=== PATIENT | female | born 1935 | race Caucasian/White ===

== ENCOUNTER 2023-08-17 16:47 | Inpatient (IN) | payer OTHER, SELFPAY ==
[2023-08-17] VITALS (9 sets, daily range): BP systolic 123–181; BP diastolic 42–86; BMI 34.2
--- NOTE | 2023-08-17 13:21 | ED.GENMED ---
History of Present Illness
<CHAYO Braswell - Last Filed: 08/17/23 14:32>
General
Chief Complaint: Abdominal Symptoms
Source: patient
Exam Limitations: none
Time Seen by Provider: 08/17/23 13:06
Nursing documentation reviewed up to this point in time: agreed with
Travel History
Have you had any contact with someone who has COVID-19?: No
Do you have any symptoms of coronavirus? Fever > 100 degrees, chills, cough, shortness of breath, sore throat, loss of taste or smell, muscle aches, or headache?: No
History of Present Illness
History of Present Illness:
Patient is a 87-year-old female on Eliquis for history A-fib presents to the ER for black stools. She noticed an episode of black stool Wednesday 2 days ago 1 yesterday but today noticed that the stool was even darker and more tarry. She denies any
abdominal pain denies any lightheaded dizziness. No prior history of GI bleed in the past. She did take her Eliquis today.
Past History
<CHAYO Braswell - Last Filed: 08/17/23 14:32>
Past History
ED Past Medical History: Arrthythmia (Paroxysmal atrial fibrillation), CAD, HTN, Hypothyroidism and Other
ED Past Surgical History: Orthopedic
Social History
Tobacco: Non-smoker
Alcohol: None
Personal:
Living: with family
Employment: Retired
Family History
Family History: Hypertension
Review of Systems
<CHAYO Braswell - Last Filed: 08/17/23 14:32>
Review of Systems
Allergies reviewed?: Yes
All Other Systems: ROS reviewed and negative except as documented in HPI and ROS
Constitutional: Reports no symptoms; Denies fever, fatigue or chills
EENT: Reports no symptoms
Respiratory: Reports no symptoms
Cardiac: Reports no symptoms
ABD/GI: Reports black stools; Denies abdominal pain
: Reports no symptoms
Musculoskeletal: Reports no symptoms
Skin: Reports no symptoms
Neurological: Reports no symptoms
Psychiatric: Reports no symptoms
Phy Exam
<CHAYO Braswell - Last Filed: 08/17/23 14:32>
General Physical Exam
General Presentation: no apparent distress
General age: appears stated age
General Skin: warm and dry
General Habitus: normal
General Mental: alert
General Hydration: appears well hydrated
Cardiovascular Exam
Cardiovascular Exam: regular rate/rhythm, no murmur and normal peripheral pulses
Pulmonary Exam
Pulmonary Exam: lungs clear and no respiratory distress
Gastrointestinal Exam
Gastrointestinal Exam: non tender, soft and other (black heme positive stools )
Neurological Exam
Neurological Exam: alert and oriented x3
Musculoskeletal Exam
Musculoskeletal Exam: full ROM
Skin Exam
Skin Exam: normal color and warm/dry
Psychiatric Exam
Psychiatric Exam: normal mood/affect
Course
<CHAYO Braswell - Last Filed: 08/17/23 14:32>
Orders/Labs/Results
Orders:
Orders
08/17/23 13:16
Cardiac Monitoring- Treatment ONCE
08/17/23 13:19
Type+Screen Urgent
Complete Blood Count/With Diff Urgent
08/17/23 13:20
Cardiac Monitoring- Treatment ONCE
IV Insert/Care/Rem.- Treatment PRN
Comprehensive Metabolic Panel Urgent
08/17/23 13:21
Electrocardiogram (*1) Stat
Reason for Study: Abdominal Pain
EKG- Treatment ONCE
08/17/23 13:48
0.9% Sodium Chloride 1000 ml [Nss] 1,000 ml IV BOLUS
08/17/23 14:18
Pantoprazole 80 mg/100 ml Nss [Protonix] 80 mg in 100 ml IV NOW
Pantoprazole [Protonix IV] 40 mg IV NOW STA
Abnormal Lab Results
08/17/23 08/17/23
13:19 13:20
RBC 3.22 L 10^6/uL
(4.20-5.40)
Hgb 9.8 L g/dL
(12.0-16.0)
Hct 28.5 L %
(37.0-47.0)
RDW 14.7 H %
(11.5-14.5)
MPV 12.0 H fL
(7.4-10.4)
BUN 102 H* mg/dl
(7-17)
Creatinine 1.6 H mg/dL
(0.6-1.0)
Glucose 118 H mg/dl
(70-99)
08/17/23 13:19
08/17/23 13:20
Vital Signs
Initial and Last Documented VS:
Initial Vital Signs
Temp Pulse Resp BP Pulse Ox
97.9 F 64 18 151/62 99
08/17/23 11:42 08/17/23 11:42 08/17/23 11:42 08/17/23 11:42 08/17/23 11:42
Last Documented Vital Signs
Temp Pulse Resp BP Pulse Ox
97.9 F 67 16 165/52 99
08/17/23 11:42 08/17/23 14:00 08/17/23 14:00 08/17/23 14:00 08/17/23 11:42
<Man Antunez, DO - Last Filed: 08/17/23 14:29>
Orders/Labs/Results
Orders:
Orders
08/17/23 13:16
Cardiac Monitoring- Treatment ONCE
08/17/23 13:19
Type+Screen Urgent
Complete Blood Count/With Diff Urgent
08/17/23 13:20
Cardiac Monitoring- Treatment ONCE
IV Insert/Care/Rem.- Treatment PRN
Comprehensive Metabolic Panel Urgent
08/17/23 13:21
Electrocardiogram (*1) Stat
Reason for Study: Abdominal Pain
EKG- Treatment ONCE
08/17/23 13:48
0.9% Sodium Chloride 1000 ml [Nss] 1,000 ml IV BOLUS
08/17/23 14:18
Pantoprazole 80 mg/100 ml Nss [Protonix] 80 mg in 100 ml IV NOW
Pantoprazole [Protonix IV] 40 mg IV NOW STA
Abnormal Lab Results
08/17/23 08/17/23
13:19 13:20
RBC 3.22 L 10^6/uL
(4.20-5.40)
Hgb 9.8 L g/dL
(12.0-16.0)
Hct 28.5 L %
(37.0-47.0)
RDW 14.7 H %
(11.5-14.5)
MPV 12.0 H fL
(7.4-10.4)
BUN 102 H* mg/dl
(7-17)
Creatinine 1.6 H mg/dL
(0.6-1.0)
Glucose 118 H mg/dl
(70-99)
08/17/23 13:19
08/17/23 13:20
Vital Signs
Initial and Last Documented VS:
Initial Vital Signs
Temp Pulse Resp BP Pulse Ox
97.9 F 64 18 151/62 99
08/17/23 11:42 08/17/23 11:42 08/17/23 11:42 08/17/23 11:42 08/17/23 11:42
Last Documented Vital Signs
Temp Pulse Resp BP Pulse Ox
97.9 F 67 16 165/52 99
08/17/23 11:42 08/17/23 14:00 08/17/23 14:00 08/17/23 14:00 08/17/23 11:42
<CHAYO Braswell - Last Filed: 08/17/23 14:32>
MDM/Problems Addressed
Differential Diagnosis Includes:
Not limited to GI bleed anemia electrolyte abnormality
MDM/Problems Addressed:
Patient is an 87-year-old female on Eliquis for A-fib presents to the ER for 3 days of dark stools worse today. Patient denies any actual fatigue abdominal pain. She is no acute distress. She has dark in positive stools on exam. Abdomen soft
nontender white count stable at 8.9 hemoglobin stable at 9.8 which is improved from 9.0 . Patient has a BUN of 102 creatinine 1.6 which is baseline. Patient typed and screened. Protonix IV bolus and infusion ordered. Will notify GI will require
admission to the hospitalist. Patient evaluated attending
Chronic conditions affecting care:
on eliquis for afib
<CHAYO Braswell - Last Filed: 08/17/23 14:32>
*Pulse Oximetry
Patient hypoxic: no
*EKG
Interpretation: normal
Heart Rate: 62
Rate: normal
Rhythm: sinus
Ischemia: no ischemia
<Man Antunez DO - Last Filed: 08/17/23 14:29>
*Critical Care Note
Total Time (30-74mins, 75-104mins- exclusive of procedures): 31 min
comment:
The high probability of a clinically significant, sudden or life threatening deterioration of the GI/cardiovascular system(s) required my full and direct attention, intervention and personal management. The aggregate critical care time was 31
minutes. This time is in addition to time spent performing reported procedures but includes the following:
[x] Data Review and interpretation
[x] Patient assessment and monitoring of vital signs
[x] Documentation
[x] Medication orders and management
<CHAYO Braswell - Last Filed: 08/17/23 14:32>
Patient Management
Discussion with other providers: Folder Inspector (GI DR Cota notified )
ED Attending Note
<CHAYO Braswell - Last Filed: 08/17/23 14:32>
-
Portions of this chart may have been created with voice recognition software.� Occasional wrong word or��sound alike� substitutions may have occurred due to the inherent limitations of voice recognition software.
<Man Antunez DO - Last Filed: 08/17/23 14:29>
ED Attending Note
Patient seen and examined by attending physician: Yes
I performed the substantive portion of visit, reviewed & personally made and approve the management plan that is documented in note by myself or LUISITO.: Yes
ED Attending Note:
I have seen and evaluated the patient with a [id number] encounter. I have spoken to the advance practicer provider and involved in the medical history, the physical exam, medical decision making.
Evaluation and management service: agree unless noted differently below.
Results interpretation: agree unless noted differently below.
Focused HPI: 87-year-old female presenting with dark stools for couple days. She denies any Pepto-Bismol or iron supplements. She is on Eliquis and her last dose was this morning
Physical exam: Sitting in bed comfortably. Abdomen soft nontender
Medical Decision Making: Will admit for upper GI bleed. Patient has elevated BUN. Hemoglobin not far from baseline. Patient started on Protonix drip. Will make GI aware
Discharge Plan
Departure
Patient Disposition: Admit
Date of Disposition: 08/17/23
Time of Disposition: 14:31
Admit to: Med/Surg
Admit to doctor: hospitalist
Presentation/result/management discussed w/ accepting MD/DO: Hospitalist
Patient with high blood pressure during this ER visit?: Yes
Condition: Fair
Covid-19: Not Applicable
Discharge Problem:
GI bleed
Prescriptions:
No Action
levothyroxine 100 MCG tablet
100 mcg PO DAILY
carvedilol 12.5 MG tablet
12.5 mg PO BID
rosuvastatin 10 MG tablet
10 mg PO QPM
Eliquis 5 MG tablet
5 mg PO BID
Hold Instructions: Resume on 08/29/22. Resume AM of 08/29/22.
mupirocin 2 % ointment
1 applic intranasal BID Qty: 1 0RF
Patient Comments:
applied this am 08/26/22
aspirin 81 mg Tablet,Chewable
81 mg PO DAILY
dexamethasone 4 mg Tablet
4 mg PO Q12 Qty: 5 0RF
Rx Instructions:
Restart night of discharge and take every 12 hours until finished.
Take with food.
docusate sodium 100 mg Capsule
100 mg PO BID Qty: 30 0RF
Eliquis 2.5 mg Tablet
2.5 mg PO BID Qty: 3 0RF
Rx Instructions:
Cut 5 mg tab in /2 (=2.5 mg) and take twice daily until 08/28 PM.
DO NOT resume 5 mg 2x daily dosing until 08/29 AM.
famotidine 20 mg Tablet
20 mg PO HS Qty: 30 0RF
Rx Instructions:
Take nightly while on post-surgical pain meds to reduce GI upset.
sennosides [senna] 8.6 mg Tablet
17.2 mg PO BID Qty: 30 0RF
oxycodone 5 mg tablet
5 mg PO Q6H PRN (Reason: moderate-severe pain) Qty: 30 0RF
Rx Instructions:
1 tab for moderate pain, 2 if severe.
Dx total joint. Ongoing therapy.
ondansetron HCl 4 mg tablet
4 mg PO Q6H PRN (Reason: nausea and vomiting) Qty: 20 0RF
Rx Instructions:
Take 1/2 hour prior to Oxycodone if experiencing recurrent nausea.
cefadroxil 500 mg capsule
500 mg PO DAILY Qty: 7 0RF
Rx Instructions:
Start day after discharge and continue daily until finished.
Take with probiotic.
Saccharomyces boulardii [Florastor] 250 mg capsule
250 mg PO DAILY Qty: 7 0RF
Rx Instructions:
Over the counter. Take while on antibiotic.
If unavailable, choose a different probiotic.
amlodipine 2.5 MG tablet
2.5 mg PO HS Qty: 1 0RF
Rx Instructions:
HOLD if systolic blood pressure <130 while on Oxycodone.
furosemide 20 mg Tablet
20 mg PO O60OPAN PRN (Reason: swelling) Qty: 1 0RF
Rx Instructions:
HOLD if systolic blood pressure <130 while on Oxycodone.
acetaminophen 500 mg Capsule
1,000 mg PO Q6H Qty: 60 0RF
Rx Instructions:
DO NOT exceed >4000 mg daily.
spironolactone 50 MG tablet
25 mg PO DAILY Qty: 1 0RF
Rx Instructions:
HOLD if systolic blood pressure <130 while on Oxycodone.
Referrals:
Stacey Seay MD [Family Provider] -
Interventions
Interventions:
*Risk Screen - Suicide Last Done: 08/17/23 13:05
*General Assessment Last Done: 08/17/23 13:05
*Neglect/Abuse Screening Last Done: 08/17/23 13:05
*ED COVID-19 Vaccine History Last Done: 08/17/23 12:51
LC-Crkjbh-Pjztonhuyz Assessment Last Done: 08/17/23 13:05
[2023-08-17 13:25] LABS: % Basophils 0.4 % (0-2); % Eosinophils 0.9 % (0-6); % Immature Granulocytes 0.4 % (0-0.5); % Lymphocytes 21.7 % (20.5-51.1); % Monocytes 7.2 % (1.7-9.3); % Neutrophils 69.4 % (42.2-75.2); Absolute Eosinophils 0.1 10^3/uL (0-0.7); Absolute Lymphocytes 1.9 10^3/uL (1.2-3.4); Absolute Monocytes 0.6 10^3/uL (0.1-0.6); Absolute Neutrophils 6.2 10^3/uL (1.4-6.5); Hematocrit 28.5 % (37.0-47.0); Hemoglobin 9.8 g/dL (12.0-16.0); Mean Corp Hgb Conc. 34.4 g/dL (33.0-37.0); Mean Corpuscular Hgb 30.4 pg (27.0-31.0); Mean Corpuscular Volume 88.5 fL (81.0-99.0); Nucleated Red Blood Cells % 0 %; Platelet Count 160 10^3/uL (130-400); Red Blood Cell Count 3.22 10^6/uL (4.20-5.40); Red Cell Dist. Width 14.7 % (11.5-14.5); White Blood Cell Count 8.9 10^3/uL (4.8-10.8)
[2023-08-17 13:44] LABS: ALT (SGPT) 15 U/L (0-35); AST (SGOT) 22 U/L (14-36); Albumin 4.3 g/dl (3.5-5.0); Alkaline Phosphatase 62 U/L (38-126); Blood Urea Nitrogen 102 mg/dl (7-17); Calcium 9.4 mg/dl (8.4-10.2); Carbon Dioxide 24 mmol/L (22-30); Chloride 106 mmol/L (98-107); Glucose 118 mg/dl (70-99); Potassium 4.6 mmol/L (3.5-5.1); Sodium 138 mmol/L (135-145); Total Bilirubin 0.5 mg/dl (0.2-1.3); Total Protein 6.8 g/dl (6.3-8.2); eGFR 31.41
[2023-08-17] MEDS: NSS 1000 IV (13:55)
[2023-08-17] MEDS: PROTONIX 100 IV (14:27)
[2023-08-17] MEDS: PROTONIX IV 40 MG IV (14:27)
--- NOTE | 2023-08-17 16:09 | CON.GI ---
Addendum entered and electronically signed by Yolie Moya DO 08/17/23 18:22:
Patient seen and examined independently of CHAYO. I agree with her note with my additions below.
Cristiane is a pleasant 87-year-old female with history of atrial fibrillation on Eliquis, mild to moderate valvular disease, arthritis who takes Tylenol but no NSAIDs currently comes in with 1-2 formed black stools that became progressively more
sticky in nature. Otherwise she is completely asymptomatic. She is not dizzy. No chest pain or shortness of breath. Has no dysphagia, nausea, vomiting, abdominal pain, GERD, baseline constipation or diarrhea. She is hemodynamically stable. Her
hemoglobin is 9.8 which is in her baseline range of 9-11 but with an increase in BUN which is normally high but it is double. Her last colonoscopy was in 2010. She has had no prior endoscopy.
Overall, she is hemodynamically stable here with likely an upper GI bleed on Eliquis
-Will hold the Eliquis
-Start a PPI drip
-Okay for full liquids
-Plan for endoscopy on or sooner if necessary
-Monitor hemoglobin, ensure good IV access
Original Note:
Consultation
-
Date/Time Consultation Requested: 08/17/23 1500
Date/Time Consultation Performed: 08/17/23 1615
Requesting Provider: CHAYO Hampton
Performing Provider: CHAYO Cabral, Yolie Moya DO
Reason for Consultation: black stool
Medical History
Chief Complaint / HPI
Chief Complaint: black stools
History of Present Illness:
Pt is an 87yo presents with hx Afib on chronic Eliquis, mild- Mod MR, mild TR, HTN, hypothyroidism, arthritis on Tylenol no NSAIDS other than daily ASA with onset of black stools passing 1-2 formed stools daily since Wednesday night. On admission hbg
9.8 with prior range 9-11 since 2020 but Marked increased BUN 102 from prior high of 45. No hx EGD. colonoscopy [address] Chirla -� - One 3 mm polyp in the ileocecal valve, diverticulosis, IH bx neg adenoma benign hyperplastic lymphoid follicle.
Pt denies pepto use. No other medication changes. No dizziness, dysphagia, GERD, nausea, vomiting, abdominal pain, diarrhea, constipation or black stools. ER rectal exam black heme +
Past Medical History
Past Medical History: Arrhythmias (PAF), CAD, HTN, Hypothyroidism, Valvular Disease (mild- mod , mild TR) and Other (arthritis )
Past Surgical History: Other (removal of benign skin lesion on chest )
Social History
Tobacco: Non-Smoker
Alcohol: Occasional (rare 1 glass wine per year )
Drug: None
Personal:
Living: With Family
Employment: Retired
Family History
Family History: Other (no family hx colon Ca or polyps)
Allergies / Home Medications
Allergy/AdvReac Type Severity Reaction Status Date / Time
lisinopril AdvReac Cough Verified 08/26/22 08:38
valsartan [From Diovan] AdvReac cough Verified 08/26/22 08:38
verapamil AdvReac cough Verified 08/26/22 08:38
Medication Instructions Recorded
acetaminophen 500 mg tablet 1,000 mg PO DAILY Pain 08/17/23
(Tylenol Extra Strength)
acetaminophen 500 mg tablet 1,000 mg PO HSPRN PRN mild pain 08/17/23
(Tylenol Extra Strength)
amlodipine 2.5 mg tablet 2.5 mg PO HS Blood Pressure 08/17/23
apixaban 5 mg tablet (Eliquis) 5 mg PO BID Blood Clot 08/17/23
Prevention/Tx
aspirin 81 mg tablet,delayed 81 mg PO DAILY Blood Clot 08/17/23
release Prevention/Tx
carvedilol 12.5 mg tablet 12.5 mg PO BID Blood Pressure 08/17/23
furosemide 40 mg tablet 40 mg PO DAILY Gastrointestinal 08/17/23
Issue
levothyroxine 100 mcg tablet 100 mcg PO DAILY Thyroid 08/17/23
rosuvastatin 10 mg tablet 10 mg PO QPM High Cholesterol 08/17/23
spironolactone 50 mg tablet 25 mg PO NOON Blood Pressure 08/17/23
Review of Systems
-
History Source: Patient
Constitutional: Reports No Symptoms
EENT: Reports No Symptoms
Respiratory: Reports No Symptoms
Cardiac: Reports No Symptoms
Abdomen/GI: Reports Black Stools
: Reports No Symptoms
Musculoskeletal: Reports Other (arthritic pains )
Skin: Reports No Symptoms
Neurological: Reports No Symptoms
Endocrine: Reports No Symptoms
Hematologic/Lymphatic: Reports Bleeding
Vital Signs
Temp Pulse Resp BP Pulse Ox
97.9 F 75 26 181/66 99
08/17/23 11:42 08/17/23 15:19 08/17/23 15:19 08/17/23 15:19 08/17/23 11:42
Physical Exam
Exam
General: Well Developed, Well Nourished and No Apparent Distress
HEENT: Normocephalic and Anicteric
Respiratory: Clear
Cardiac: Regular Rhythm
GI: Soft, Non Tender and Non Distended
Rectal: Black (heme + in ER)
Musculoskeletal: No Clubbing and No Cyanosis
Skin: Warm and Dry
Neuro: Awake, Alert and AO x 3
Psych: Calm
Results
WBC 8.9 10^3/uL (4.8-10.8) 08/17/23 13:19
Hgb 9.8 g/dL (12.0-16.0) L 08/17/23 13:19
Hct 28.5 % (37.0-47.0) L 08/17/23 13:19
MCV 88.5 fL (81.0-99.0) 08/17/23 13:19
Plt Count 160 10^3/uL (130-400) 08/17/23 13:19
Absolute Neuts (auto) 6.2 10^3/uL (1.4-6.5) 08/17/23 13:19
Sodium 138 mmol/L (135-145) 08/17/23 13:20
Potassium 4.6 mmol/L (3.5-5.1) 08/17/23 13:20
Chloride 106 mmol/L (98-107) 08/17/23 13:20
Carbon Dioxide 24 mmol/L (22-30) 08/17/23 13:20
BUN 102 mg/dl (7-17) H* 08/17/23 13:20
Creatinine 1.6 mg/dL (0.6-1.0) H 08/17/23 13:20
Calcium 9.4 mg/dl (8.4-10.2) 08/17/23 13:20
Total Bilirubin 0.5 mg/dl (0.2-1.3) 08/17/23 13:20
AST 22 U/L (14-36) 08/17/23 13:20
ALT 15 U/L (0-35) 08/17/23 13:20
Alkaline Phosphatase 62 U/L (38-126) 08/17/23 13:20
Diagnostic Image Results:
Prior GI Procedures:
EGD: none
Colonoscopy: 2010 - [facility] � - One 3 mm polyp in the ileocecal valve, diverticulosis, IH bx neg adenoma benign hyperplastic lymphoid follicle.
Assessment / Plan
-
Pt is an 87yo presents with hx Afib on chronic Eliquis, mild- Mod MR, mild TR, HTN, hypothyroidism, arthritis on Tylenol no NSAIDS other than daily ASA with onset of black stools passing 1-2 formed stools daily since Wednesday night. On admission hbg
9.8 with prior range 9-11 since 2020 but Marked increased BUN 102 from prior high of 45. No hx EGD. colonoscopy [address] Zuluaga -� - One 3 mm polyp in the ileocecal valve, diverticulosis, IH bx neg adenoma benign hyperplastic lymphoid follicle.
-black stools
-mild anemia
-afib on Elquis prior to admission
other med problems:
-CAD on daily ASA
--mid-mod MR, mild TR
-hypothyroidism
-arthritis on Tylenol
PLANL
etiology of bleeding related to upper source with marked elevated BUN --PUD, Tevin lesion, ectasia with hx mild valve disease, mass vs lower or SB source
plan for EGD after Eliquis wash out unless significant bleeding overnight or drop in hgb
trend hbg and BUN
transfuse less than 7
eliquis hold last dose 3/12 AM
ok for clear diet
if EGD neg consider colonoscopy
will follow
-
-
Thank you for consultation and allowing me to participate in the patient's care. Please call the steam station supervisor GI physician during the after hours with any questions or concerns.
--- NOTE | 2023-08-17 16:36 | HPS.HSE ---
Family Physician
-
Family Physician: Stacey Seay
Chief Complaint
-
Black stool with concern for gastrointestinal hemorrhage.
History of Present Illness
Patient is a 87 years old female with history of paroxysmal atrial fibrillation on anticoagulation with Eliquis, coronary artery disease with history of CO who presents to the emergency room after about 24 hours onset of a black stools. Patient
denies any abdominal pain, nausea or vomiting. She noticed black stools from about 48 hours prior to presentation and with concern for gastrointestinal hemorrhage being on Eliquis presented to the emergency room.
While in the emergency room patient is hemodynamically stable
Hide exam reveals benign abdomen and heme positive black stools
Patient with chronic anemia with unchanged hemoglobin at 9.8
Medical History
Past Medical History
Past Medical History: Reports Arrhythmia (Paroxysmal A-fib), CAD, Hypercholesterolemia and Hypothyroidism
Past Surgical History: Reports Other (PTCA)
Social History
Tobacco: Non-smoker
Drug: None
Living: With Family
Family History
Family History: Not pertinent
Allergies / Home Medications
Allergies reflects when Allergies were last updated in [facility].
Home Medications with original date entered in [facility]
Allergy/Medication List:
Allergies
Allergy/AdvReac Type Severity Reaction Status Date / Time
lisinopril AdvReac Cough Verified 08/26/22 08:38
valsartan [From Diovan] AdvReac cough Verified 08/26/22 08:38
verapamil AdvReac cough Verified 08/26/22 08:38
Home Medications
acetaminophen 500 mg tablet (Tylenol Extra Strength) 1,000 mg PO DAILY Pain 08/17/23
acetaminophen 500 mg tablet (Tylenol Extra Strength) 1,000 mg PO HSPRN PRN mild pain 08/17/23
amlodipine 2.5 mg tablet 2.5 mg PO HS Blood Pressure 08/17/23
apixaban 5 mg tablet (Eliquis) 5 mg PO BID Blood Clot Prevention/Tx 08/17/23
aspirin 81 mg tablet,delayed release 81 mg PO DAILY Blood Clot Prevention/Tx 08/17/23
carvedilol 12.5 mg tablet 12.5 mg PO BID Blood Pressure 08/17/23
furosemide 40 mg tablet 40 mg PO DAILY Gastrointestinal Issue 08/17/23
levothyroxine 100 mcg tablet 100 mcg PO DAILY Thyroid 08/17/23
rosuvastatin 10 mg tablet 10 mg PO QPM High Cholesterol 08/17/23
spironolactone 50 mg tablet 25 mg PO NOON Blood Pressure 08/17/23
Review of Systems
-
A 12 point ROS was completed and negative except as noted: Yes
Physical Exam
Vital Signs
Vital Signs
Temp Pulse Resp BP Pulse Ox
97.9 F 75 26 181/66 99
08/17/23 11:42 08/17/23 15:19 08/17/23 15:19 08/17/23 15:19 08/17/23 11:42
Physical Exam
General: Well Developed, Well Nourished and No Apparent Distress
HEENT: NormoCephalic, Moist mucous membranes and Atraumatic
Respiratory: Clear
Cardiac: S1/S2 and Regular Rhythm; No Murmur or Rub
GI: Soft, Non Tender, Non Distended and Normal Bowel Sounds; No Organomegaly
Rectal: Deferred by Provider
Musculoskeletal: No Clubbing, No Cyanosis and No Edema
Skin: No Rash
Neuro: Nonfocal/grossly intact
Laboratory Results
-
08/17/23 13:19
08/17/23 13:20
Laboratory Results
Total Bilirubin 0.5 mg/dl (0.2-1.3) 08/17/23 13:20
AST 22 U/L (14-36) 08/17/23 13:20
ALT 15 U/L (0-35) 08/17/23 13:20
Alkaline Phosphatase 62 U/L (38-126) 08/17/23 13:20
Data Reviewed
-
Lab Data: Labs Reviewed by me
Impression/Plan
-
IMPRESSION:
Presentation with black tarry stools
Gastrointestinal hemorrhage source to be determined.
Chronic anemia
Conditions prior to admission:
Paroxysmal atrial fibrillation
Anticoagulation with Eliquis.
CAD with history of known ST elevation CO/PCI with stent to RCA in 2020
Essential hypertension
Dyslipidemia
Chronic kidney disease stage IIIb with baseline creatinine 1.5.
Hypothyroidism on replacement
PLAN:
Gastrointestinal hemorrhage.
Patient presents with tarry stools and elevated BUN.
Last dose of Eliquis morning of presentation.
Likely upper GI source given elevated BUN.
No prior history of PUD
Patient reports colonoscopy 8 years ago
Chronic normocytic anemia with hemoglobin at the baseline upon presentation.
Hold Eliquis.
IV PPI/Protonix drip.
Serial H&H monitoring.
Type and cross
Consent signed in case required transfusion.
Gastroenterology evaluation
Paroxysmal atrial fibrillation
In sinus rhythm
Continue cardiac monitoring
Continue Coreg with caution for hypotension
Hold Eliquis
CAD
Essential hypertension
Asymptomatic.
Hold aspirin.
Continue preadmission antihypertensive regimen including Coreg, amlodipine, furosemide Aldactone with caution.
Hypothyroidism on replacement.
[2023-08-17] MEDS: CRESTOR 10 MG PO (20:33)
[2023-08-17] MEDS: COREG 12.5 MG PO (20:33)
[2023-08-17] MEDS: NORVASC 2.5 MG PO (21:58)
--- NOTE | 2023-08-17 23:00 | PTCARENOTE ---
no delay received from er. aaox3. sb on monitor. vss. pt ambulated w/ rw w/o issue. protonix gtt @ 8mg/hr. call watt in reach will monitor.
[2023-08-18] MEDS: PROTONIX 100 IV (01:28)
[2023-08-18 03:41] VITALS: BP 138/51
[2023-08-18 05:16] VITALS: BMI 34.2
[2023-08-18 05:44] LABS: % Basophils 0.8 % (0-2); % Eosinophils 2.4 % (0-6); % Immature Granulocytes 0.5 % (0-0.5); % Lymphocytes 26.9 % (20.5-51.1); % Monocytes 9.8 % (1.7-9.3); % Neutrophils 59.6 % (42.2-75.2); Absolute Basophils 0.1 10^3/uL (0-0.2); Absolute Eosinophils 0.2 10^3/uL (0-0.7); Absolute Lymphocytes 1.7 10^3/uL (1.2-3.4); Absolute Monocytes 0.6 10^3/uL (0.1-0.6); Absolute Neutrophils 3.7 10^3/uL (1.4-6.5); Hemoglobin 9.3 g/dL (12.0-16.0); Mean Corp Hgb Conc. 34.4 g/dL (33.0-37.0); Mean Corpuscular Hgb 30.4 pg (27.0-31.0); Mean Corpuscular Volume 88.2 fL (81.0-99.0); Mean Platelet Volume 12.5 fL (7.4-10.4); Nucleated Red Blood Cells % 0 %; Platelet Count 168 10^3/uL (130-400); Red Blood Cell Count 3.06 10^6/uL (4.20-5.40); Red Cell Dist. Width 14.7 % (11.5-14.5); White Blood Cell Count 6.2 10^3/uL (4.8-10.8)
[2023-08-18 07:53] VITALS: BP 145/57
[2023-08-18] MEDS: COREG 12.5 MG PO ×2 (08:06→21:23)
[2023-08-18] MEDS: TYLENOL 1000 MG PO ×2 (08:06→23:19)
[2023-08-18] MEDS: SYNTHROID 100 MCG PO (08:06)
[2023-08-18] MEDS: LASIX PO (08:07)
--- NOTE | 2023-08-18 09:37 | W.PN.GI.CBS2 ---
Addendum entered and electronically signed by Yolie Moya DO 08/18/23 14:06:
Patient seen and examined independently of [facility]. I agree with her note with my additions below
Cristiane is a 89-year-old female with A-fib on Eliquis, valvular disease and arthritis on Tylenol without NSAIDs other than her daily aspirin who came in with 1-2 formed sticky stools with drop in hemoglobin and elevated BUN. No further stools on
admission.
-- N.p.o. after midnight for EGD tomorrow
--Twice daily PPI is fine
-- Exam is benign and patient is stable
Original Note:
Today's Communication / Plan
-
etiology of bleeding related to upper source with marked elevated BUN --PUD, Tevni lesion, ectasia with hx mild valve disease, mass vs lower or SB source
plan for EGD after Eliquis
trend hbg and BUN with some decrease in BUN since admission 102 down to 76
transfuse less than 7-- hbg stable 9.3 today
eliquis hold last dose 3 AM
ok for low residue today then NPO in AM
if EGD neg consider colonoscopy
transition to PPI BID
will follow
Assessment / Plan
-
Pt is an 87yo presents with hx Afib on chronic Eliquis, mild- Mod MR, mild TR, HTN, hypothyroidism, arthritis on Tylenol no NSAIDS other than daily ASA with onset of black stools passing 1-2 formed stools daily since Wednesday night. On admission hbg
9.8 with prior range 9-11 since 2020 but Marked increased BUN 102 from prior high of 45. No hx EGD. colonoscopy 2010 Dr. Zuluaga -� - One 3 mm polyp in the ileocecal valve, diverticulosis, IH bx neg adenoma benign hyperplastic lymphoid follicle.
-black stools
-mild anemia
-afib on Elquis prior to admission
other med problems:
-CAD on daily ASA
--mid-mod MR, mild TR
-hypothyroidism
-arthritis on Tylenol
PLAN:
etiology of bleeding related to upper source with marked elevated BUN --PUD, Tevin lesion, ectasia with hx mild valve disease, mass vs lower or SB source
plan for EGD after Eliquis
trend hbg and BUN with some decrease in BUN since admission 102 down to 76
transfuse less than 7-- hbg stable 9.3 today
eliquis hold last dose 08/16 AM
ok for low residue today then NPO in AM
if EGD neg consider colonoscopy
transition to PPI BID
will follow
Subjective
Subjective
Date of Service: August 18, 2023
no stools overnight on clear diet
Objective
Data Reviewed
Laboratory Data:
Laboratory Results
08/18/23 11:52
Laboratory Results
Total Bilirubin 0.5 mg/dl (0.2-1.3) 08/17/23 13:20
AST 22 U/L (14-36) 08/17/23 13:20
ALT 15 U/L (0-35) 08/17/23 13:20
Alkaline Phosphatase 62 U/L (38-126) 08/17/23 13:20
Vital Signs and I&O:
Vital Signs
Temp Pulse Resp BP Pulse Ox
97.9 F 70 17 145/57 96
08/18/23 07:53 08/18/23 08:06 08/18/23 07:53 08/18/23 08:06 08/18/23 07:53
I&O
08/17/23 08/18/23 08/19/23
06:59 06:59 06:59
Intake Total 120 / 120
Output Total 2 / 2
Balance 118 / 118
Physical Exam
Physical Exam
HEENT: Anicteric and Moist mucous membranes
Cardiology: Normal Sinus Rhythm
Pulmonary: Clear
GI: Soft, Non Distended and Non Tender
Extremities: No Edema
Neuro: Non Focal
[2023-08-18 09:38] LABS: Blood Urea Nitrogen 76 mg/dl (7-17); Calcium 9.5 mg/dl (8.4-10.2); Carbon Dioxide 24 mmol/L (22-30); Chloride 105 mmol/L (98-107); Estimated Creatinine Clearance 37 ml/min; Glucose 117 mg/dl (70-99); Sodium 140 mmol/L (135-145)
[2023-08-18 09:50] LABS: Potassium 4.1 mmol/L (3.5-5.1)
[2023-08-18 11:23] VITALS: BP 128/94
[2023-08-18] MEDS: ALDACTONE 25 MG PO (11:51)
--- NOTE | 2023-08-18 14:30 | W.PN.HOSP.TC ---
Today's Communication/Plan
-
Has been off Eliquis.
Hemoglobin stable.
No clinical evidence of brisk hemorrhage.
Plan for endoscopy on 08/18 after Eliquis washout
Assessment / Plan
Assessment / Plan
IMPRESSION:
Presentation with black tarry stools
Gastrointestinal hemorrhage source to be determined.
Chronic anemia
Conditions prior to admission:
Paroxysmal atrial fibrillation
Anticoagulation with Eliquis.
CAD with history of known ST elevation ND/PCI with stent to RCA in 2020
Essential hypertension
Dyslipidemia
Chronic kidney disease stage IIIb with baseline creatinine 1.5.
Hypothyroidism on replacement
PLAN:�
Gastrointestinal hemorrhage.
Patient presents with tarry stools and elevated BUN.
Last dose of Eliquis morning of presentation.
Likely upper GI source given elevated BUN.
No prior history of PUD
Patient reports colonoscopy 8 years ago
Chronic normocytic anemia with hemoglobin at the baseline upon presentation.
Hold Eliquis.
IV PPI/Protonix drip.
Serial H&H monitoring.
Type and cross
Consent signed in case required transfusion.
Gastroenterology evaluation
Paroxysmal atrial fibrillation
In sinus rhythm
Continue cardiac monitoring
Continue Coreg with caution for hypotension
Hold Eliquis
CAD
Essential hypertension
Asymptomatic.
Hold aspirin.
Continue preadmission antihypertensive regimen including Coreg, amlodipine, furosemide Aldactone with caution.
Hypothyroidism on replacement.
Anticipated Discharge: 24 - 48 hours
Subjective/Interval History
-
Date of Service: August 18, 2023
Objective Data
-
Labs:
Laboratory Results
08/18/23 08/18/23 08/18/23
05:20 08:42 11:52
WBC 6.2
Hgb 9.3 L Cancelled
Hct 27.0 L
Plt Count 168
Sodium Cancelled 140
Potassium Cancelled 4.1
Chloride Cancelled 105
Carbon Dioxide Cancelled 24
BUN Cancelled 76 H
Creatinine Cancelled 1.3 H
Glucose Cancelled 117 H
Calcium Cancelled 9.5
Vital Signs:
Vital Signs
Temp Pulse Resp BP Pulse Ox
97.6 F 68 17 128/94 97
08/18/23 11:23 08/18/23 11:23 08/18/23 11:23 08/18/23 11:23 08/18/23 11:23
I&O
08/17/23 08/18/23 08/19/23
06:59 06:59 06:59
Intake Total 120 / 120
Output Total 2 / 2
Balance 118 / 118
Physical Exam
-
General: Well Developed and No Apparent Distress
HEENT: Normocephalic, Atraumatic and Moist Mucous Membranes
Respiratory: Clear to Auscultation
Cardiac: Regular Rhythm and S1/S2; Negative Murmur, Rub or Gallop
GI: Soft, Nontender, Nondistended and Normal Bowel Sounds; Negative Organomegaly
Rectal: Deferred by Provider
Musculoskeletal: No Clubbing, No Cyanosis and No Edema
Skin: Negative Rash
Neuro: Nonfocal/Grossly Intact
[2023-08-18 15:13] VITALS: BP 146/58
[2023-08-18] MEDS: CRESTOR 10 MG PO (17:18)
--- NOTE | 2023-08-18 17:26 | CM ---
CM following re: d/c planning
Chart reviewed
CM met with the patient at bedside; IA completed
Pt states she and her spouse reside in a [place] with 1STE
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
Pt has no SNF hx, has had [facility] for home care, & has a spc, r/w, & bars in the bathroom for safety
Pt has prescription coverage and rx's are filled at [facility] on [address]
Pt PCP-Donald Seay
Pt anticipates d/c home when stable
CM will continue to monitor patient progress and assist with any needs as applicable
PLAN; d/c home no needs anticipated
[2023-08-18 21:19] VITALS: BP 154/72
[2023-08-18] MEDS: NORVASC 2.5 MG PO (21:22)
[2023-08-18] MEDS: PROTONIX IV 40 MG IV (21:23)
[2023-08-18] MEDS: NSS (PRESERVATIVE FREE) 10 ML IV (21:23)
[2023-08-18 23:22] VITALS: BP 135/56
[2023-08-19] VITALS (7 sets, daily range): BP systolic 13–152; BP diastolic 46–56; BMI 34.4
[2023-08-19 05:50] LABS: Hemoglobin 8.9 g/dL (12.0-16.0); Mean Corp Hgb Conc. 34.2 g/dL (33.0-37.0); Mean Corpuscular Hgb 30.7 pg (27.0-31.0); Mean Corpuscular Volume 89.7 fL (81.0-99.0); Mean Platelet Volume 12.2 fL (7.4-10.4); Platelet Count 148 10^3/uL (130-400); Red Cell Dist. Width 14.6 % (11.5-14.5); White Blood Cell Count 5.9 10^3/uL (4.8-10.8)
[2023-08-19 06:06] LABS: INR 1.28
[2023-08-19 06:11] LABS: Blood Urea Nitrogen 64 mg/dl (7-17); Calcium 9.2 mg/dl (8.4-10.2); Carbon Dioxide 26 mmol/L (22-30); Chloride 107 mmol/L (98-107); Estimated Creatinine Clearance 32 ml/min; Glucose 102 mg/dl (70-99); Sodium 140 mmol/L (135-145); eGFR 33.94
[2023-08-19] MEDS: SYNTHROID 100 MCG PO (06:17)
[2023-08-19 06:18] LABS: Potassium 3.9 mmol/L (3.5-5.1)
[2023-08-19] MEDS: NSS (PRESERVATIVE FREE) 10 ML IV (08:49)
[2023-08-19] MEDS: PROTONIX IV 40 MG IV (08:49)
[2023-08-19] MEDS: LASIX 40 MG PO (10:31)
[2023-08-19] MEDS: COREG 12.5 MG PO (10:31)
[2023-08-19] MEDS: TYLENOL PO (10:32)
--- NOTE | 2023-08-19 10:38 | PN.CDI ---
CDI
- -
CDI:
Physician Documentation Request
Admit Date: 08/17/23 16:47
Dear Doctor Alec,
Patient admitted with GI bleed.
08/18 Hospitalist PN: 'Gastrointestinal hemorrhage...Last dose of Eliquis morning of presentation...Hold Eliquis.'
Please clarify the relationship between these conditions:
Yes, GI bleed is related to/exacerbated by Eliquis
No, GI bleed is not related to/exacerbated by Eliquis
Unable to determine
Use of terms such as suspected, likely, concern for, or probable (associated with a specific diagnosis that is being evaluated, monitored, or treated as if it exists) are acceptable and can be coded in the inpatient setting, when documented at the
time of discharge.
Thank you,
Sharon Garcia RN, BSN
CDI Specialist
Available via [place] text
Please use your independent medical judgment in providing your response.
--- NOTE | 2023-08-19 12:09 | W.DS.TRANS ---
DC Summary - [employer]
-
Discharge Instructions:
Sleep Apnea Risk Low
Discharge Diagnosis/Procedures Gastrointestinal hemorrhage
Diet Regular
Blood Work CBC, BMP in one week
Instructions:
Stand-Alone Forms:
Changes to Home Medications: Yes
Discharge Medications:
DC Medications w/original date entered in [facility]
acetaminophen 500 mg tablet (Tylenol Extra Strength) 1,000 mg PO DAILY Pain 08/17/23
acetaminophen 500 mg tablet (Tylenol Extra Strength) 1,000 mg PO HSPRN PRN mild pain 08/17/23
amlodipine 2.5 mg tablet 2.5 mg PO HS Blood Pressure 08/17/23
apixaban 5 mg tablet (Eliquis) 5 mg PO BID Blood Clot Prevention/Tx 08/17/23
aspirin 81 mg tablet,delayed release 81 mg PO DAILY Blood Clot Prevention/Tx 08/17/23
carvedilol 12.5 mg tablet 12.5 mg PO BID Blood Pressure 08/17/23
furosemide 40 mg tablet 40 mg PO DAILY Gastrointestinal Issue 08/17/23
levothyroxine 100 mcg tablet 100 mcg PO DAILY Thyroid 08/17/23
rosuvastatin 10 mg tablet 10 mg PO QPM High Cholesterol 08/17/23
spironolactone 50 mg tablet 25 mg PO NOON Blood Pressure 08/17/23
pantoprazole 40 mg tablet,delayed release 40 mg PO BID #90 tabs 08/19/23
Home Medication Changes
Protonix started.
Pending Results: Yes
Additional Pending Results:
EGD biopsy report
[2023-08-19] MEDS: ALDACTONE 25 MG PO (12:20)
--- NOTE | 2023-08-19 13:56 | CM ---
Patient has been medically cleared for discharge to home with no additional skilled services. Patient arranged for transport home.
== END 2023-08-19 13:22 | disposition home or self-care (01) | DRG 378 ==
LOC: 2 SOUTH 16:47
PROVIDERS: Nurse Practitioner Adult Health; ADMITTING PHYSICIAN Internal Medicine; CONSULT PHYSICIAN Internal Medicine; EMERGENCY PHYSICIAN Student in an Organized Health Care Education/Training Program; FAMILY PHYSICIAN Internal Medicine
PROC: 0DB68ZX Excision of Stomach, Via Natural or Artificial Opening Endoscopic, Diagnostic (ICD-10-PCS; 2023-08-19)
DX: K92.2 Gastrointestinal hemorrhage, unspecified (principal); D62 Acute posthemorrhagic anemia; D68.32 Hemorrhagic disorder due to extrinsic circulating anticoagulants; Z79.01 Long term (current) use of anticoagulants; I48.0 Paroxysmal atrial fibrillation; I25.10 Atherosclerotic heart disease of native coronary artery without angina pectoris; I25.2 Old myocardial infarction; E78.00 Pure hypercholesterolemia, unspecified; N18.32 Chronic kidney disease, stage 3b; I12.9 Hypertensive chronic kidney disease with stage 1 through stage 4 chronic kidney disease, or unspecified chronic kidney disease; E03.9 Hypothyroidism, unspecified; K44.9 Diaphragmatic hernia without obstruction or gangrene; Z79.82 Long term (current) use of aspirin; M19.90 Unspecified osteoarthritis, unspecified site
CPT/HCPCS: 88305; 80048; 80053; 85018; 85025; 85027; 85610; 86850; 86900; 86901; 88342; 93005; 96361; 96374; 96376; 99291

== ENCOUNTER → 2023-12-16 12:42 | Outpatient (REF) | payer OTHER, SELFPAY | LOC: HWRCS 12:42 | PROVIDERS: ATTENDING PHYSICIAN Internal Medicine Interventional Cardiology; FAMILY PHYSICIAN Internal Medicine | DX: I35.0 Nonrheumatic aortic (valve) stenosis (principal) | CPT/HCPCS: 93306 ==

== ENCOUNTER 2025-02-11 12:53 | Emergency (ER) | payer OTHER, SELFPAY ==
[2025-02-11 12:55] VITALS: BP 162/66
--- NOTE | 2025-02-11 14:25 | ED.GENMED ---
History of Present Illness
General
Chief Complaint: Rectal Bleeding
Time Seen by Provider: 02/11/25 14:06
History of Present Illness
History of Present Illness:
89 yo female w/ hx of PAF on Eliquis presents for evaluation of rectal bleeding. 1 episode this AM of blood in stool. No bleeding since. No dizziness, lightheadedness, abd pain, N/V. No LUTS. Did not take her Eliquis today.
Past History
Past History
ED Past Medical History: Arrthythmia (Paroxysmal atrial fibrillation), CAD, HTN, Hypothyroidism and Other
ED Past Surgical History: Orthopedic
Social History
Tobacco: Non-smoker
Alcohol: None
Personal:
Living: with family
Employment: Retired
Family History
Family History: Hypertension
Review of Systems
Review of Systems
Allergies reviewed?: Yes
All Other Systems: ROS reviewed and negative except as documented in HPI and ROS
Phy Exam
Physical Exam
Physical Exam:
GEN: Well appearing, NAD, WDWN
HEENT: Oral mucosa moist, no scleral icterus
Cardiac: Regular rate
Lung: No respiratory distress, no tachypnea
Abdomen: Soft, grossly non tender
Rectal: Small amount of brown stool in rectal vault, heme neg, no gross bleeding, no visible hemorrhoid
MSK: No gross deformity or injuries
Skin: Good color, no pallor or jaundice, no rashes
Neuro: AO x3, moves all extremities freely
Psych: Calm, cooperative
Course
Orders/Labs/Results
Orders:
Orders
02/11/25 14:35
Type+Screen Urgent
Complete Blood Count/No Diff Urgent
Comprehensive Metabolic Panel Urgent
Abnormal Lab Results
02/11/25
14:35
RBC 3.72 L 10^6/uL
(4.20-5.40)
Hgb 11.6 L g/dL
(12.0-16.0)
Hct 34.5 L %
(37.0-47.0)
MCH 31.2 H pg
(27.0-31.0)
RDW 15.8 H %
(11.5-14.5)
MPV 12.2 H fL
(7.4-10.4)
BUN 31 H mg/dl
(7-17)
Creatinine 1.1 H mg/dL
(0.6-1.0)
Glucose 107 H mg/dl
(70-99)
02/11/25 14:35
02/11/25 14:35
Vital Signs
Initial and Last Documented VS:
Initial Vital Signs
Temp Pulse Resp BP Pulse Ox
98.4 F 68 18 162/66 97
02/11/25 12:55 02/11/25 12:55 02/11/25 12:55 02/11/25 12:55 02/11/25 12:55
Last Documented Vital Signs
Temp Pulse Resp BP Pulse Ox
98.4 F 68 18 190/77 92
02/11/25 17:00 02/11/25 12:55 02/11/25 12:55 02/11/25 16:06 02/11/25 16:15
MDM/Problems Addressed
MDM/Problems Addressed:
Patient is quite stable at this time, did not have any further bleeding in the ED, hemoglobin is improved compared to prior readings. She was given the option of observation versus discharge and she would prefer discharge which is reasonable. Will
recommend holding Eliquis for total of 72 hours, strict ED return parameters discussed
*Pulse Oximetry
SaO2: 97
Oxygen Mode of Delivery: Room air
Patient hypoxic: no
*Critical Care Note
Total Time (30-74mins, 75-104mins- exclusive of procedures): Not Applicable
ED Attending Note
-
Portions of this chart may have been created with voice recognition software.� Occasional wrong word or��sound alike� substitutions may have occurred due to the inherent limitations of voice recognition software.
Discharge Plan
Departure
Patient Disposition: Home (Routine Discharge)
Date of Disposition: 02/11/25
Time of Disposition: 16:19
Patient with high blood pressure during this ER visit?: No
Discharge Problem:
Rectal bleeding
Instructions: Gastrointestinal Bleeding (DC)
Prescriptions:
No Action
furosemide 40 mg Tablet
40 mg PO DAILY
carvedilol 12.5 mg Tablet
12.5 mg PO BID
amlodipine 2.5 mg Tablet
2.5 mg PO HS
aspirin 81 mg Tablet,Delayed Release (Dr/Ec)
81 mg PO DAILY
acetaminophen [Tylenol Extra Strength] 500 mg Tablet
1,000 mg PO DAILY
acetaminophen [Tylenol Extra Strength] 500 mg Tablet
1,000 mg PO HSPRN PRN (Reason: mild pain)
levothyroxine 100 mcg Tablet
100 mcg PO DAILY
spironolactone 50 mg Tablet
25 mg PO NOON
rosuvastatin 10 mg Tablet
10 mg PO QPM
Eliquis 5 mg Tablet
5 mg PO BID
pantoprazole 40 mg Tablet,Delayed Release (Dr/Ec)
40 mg PO BID Qty: 90 0RF
Rx Instructions:
40mg BID for 30 days and change to 40m daily
Referrals:
Stacey Seay MD [Family Provider, Internal Medicine]
Activity Restrictions/Additional Instructions:
Do not take your Eliquis today, tomorrow or Wednesday. If bleeding has stopped, resume Wednesday morning
If your bleeding worsens, return to the ER
Interventions
Interventions:
*Risk Screen - Suicide Last Done: 02/11/25 12:55
*General Assessment Last Done: 02/11/25 12:58
*Neglect/Abuse Screening Last Done: 02/11/25 14:59
*ED- Fall Risk Assessment Last Done: 02/11/25 14:59
*Nursing Disposition Last Done: 02/11/25 17:00
PI-Zjxdze-Fyatkpymxb Assessment Last Done: 02/11/25 14:59
ED- Cardiac Assessment Last Done: 02/11/25 14:59
ED- Pulmonary Assessment Last Done: 02/11/25 14:59
Discharge Date and Time
Discharge Date/Time: 02/11/25 16:58
Print Language: STATELESS
[2025-02-11 14:33] VITALS: BMI 38.2
[2025-02-11 15:00] VITALS: BP 168/112
[2025-02-11 15:17] LABS: Hematocrit 34.5 % (37.0-47.0); Hemoglobin 11.6 g/dL (12.0-16.0); Mean Corp Hgb Conc. 33.6 g/dL (33.0-37.0); Mean Corpuscular Volume 92.7 fL (81.0-99.0); Platelet Count 181 10^3/uL (130-400); Red Cell Dist. Width 15.8 % (11.5-14.5)
[2025-02-11 15:44] LABS: ALT (SGPT) 12 U/L (0-35); AST (SGOT) 19 U/L (14-36); Albumin 4.3 g/dl (3.5-5.0); Alkaline Phosphatase 75 U/L (38-126); Blood Urea Nitrogen 31 mg/dl (7-17); Calcium 9.4 mg/dl (8.4-10.2); Carbon Dioxide 26 mmol/L (22-30); Chloride 105 mmol/L (98-107); Estimated Creatinine Clearance 42 ml/min; Glucose 107 mg/dl (70-99); Potassium 4.1 mmol/L (3.5-5.1); Sodium 139 mmol/L (135-145); Total Protein 6.9 g/dl (6.3-8.2); eGFR 48.63
[2025-02-11 16:06] VITALS: BP 190/77
== END 2025-02-11 16:58 | disposition home or self-care (01) ==
LOC: EMR 12:53
PROVIDERS: Physician Assistant; EMERGENCY PHYSICIAN Student in an Organized Health Care Education/Training Program; FAMILY PHYSICIAN Internal Medicine
DX: K62.5 Hemorrhage of anus and rectum (principal); I48.0 Paroxysmal atrial fibrillation; I10 Essential (primary) hypertension; I25.10 Atherosclerotic heart disease of native coronary artery without angina pectoris; E03.9 Hypothyroidism, unspecified; Z79.01 Long term (current) use of anticoagulants; Z82.49 Family history of ischemic heart disease and other diseases of the circulatory system
CPT/HCPCS: 99283; 80053; 85027; 86850; 86900; 86901

== ENCOUNTER → 2025-02-28 11:13 | Outpatient (REF) | payer OTHER, SELFPAY | LOC: HWRCS 11:13 | PROVIDERS: ATTENDING PHYSICIAN Internal Medicine Interventional Cardiology; FAMILY PHYSICIAN Internal Medicine | DX: I35.0 Nonrheumatic aortic (valve) stenosis (principal) | CPT/HCPCS: 93306 ==